=== PATIENT | female | born 1945 | race Caucasian/White ===

== ENCOUNTER → 2017-01-01 | Outpatient (CLI) | payer MEDICARE ==
[~2017-01-01] VITALS: Ht 160 cm; Wt 66.8 kg
[~2017-01-01] MED LIST: ADVA500A INH; ALBUAER3 INH; ASPI-110 PO; BENZOCAINE 20% ORAL SPR 60 ML CAN OROPHARYNG ONE; BETH25TA2 PO; CLON1TAB PO; CO Q100C9 PO; DILT240C PO; DOCU100C PO; FLEC100T PO; LACTCAP8 PO; LEFL1TAB3 PO; LEVO100T5 PO; LEVO88TA2 PO; LIDOCAINE HCL 2% JELLY 5 ML SYRINGE TOPICAL ONE; PARO1TAB72 PO; PRED10 PO; SIMV20TA PO; TYLETAB34 PO; ZANT150T2 PO
[2017-01-01 07:01] VITALS: BP 144/73; PULSE 60; RESP 18; TEMP 98.3; O2SAT 98
== END ==
LOC: HEND 06:43
PROVIDERS: ATTEND Internal Medicine Gastroenterology
DX: R13.10 Dysphagia, unspecified (principal)
CPT/HCPCS: 91010